=== PATIENT | female | born 1975 | race Caucasian/White ===

== ENCOUNTER 2021-04-10 14:32 | Emergency (ER) | payer OTHER ==
[~2021-04-10] VITALS: Ht 160 cm; Wt 75.6 kg
[2021-04-10 14:36] VITALS: BP 123/52
[2021-04-10 15:02] LABS: BILIRUBIN,URINE NEGATIVE (NEG); CLARITY,URINE CLOUDY; COLOR,URINE YELLOW; NITRITE,URINE NEGATIVE (NEG); PH,URINE 5.5 (<5.0-8.0); PROTEIN,URINE NEGATIVE (NEG-TRACE); UROBILINOGEN,URINE 0.2 mg/dL (0.2 mg/dL)
[2021-04-10 15:09] LABS: BACTERIA,URINE FEW /HPF (0-FEW)
--- NOTE | 2021-04-10 15:10 | RAD ---
EXAM: Abdomen and pelvis CT without intravenous contrast. HISTORY: Flank pain. TECHNIQUE: Computed tomographic images of the abdomen and pelvis were obtained without intravenous co ntrast. Multiplanar reformatting was performed. *One or more of the following individualized dose reduction techniques were utilized for this examina tion: 1. Automated exposure control. 2. Adjustment of the mA and/or kV according to patient size. 3. Use of iterative reconstruction technique. COMPARISON: None. FINDINGS: Evaluation of the lower thorax demonstrates no infiltrate, pleural effusion or pneumothorax . There is a 3 mL nodule along the right minor fissure due to a fissural lymph node. There is posteri or dependent atelectasis. No hepatic lesion is seen. The gallbladder, pancreas, spleen and adrenal gl ands are unremarkable. The stomach is unremarkable. There is mild right hydronephrosis secondary to a 2 mm obstructing stone within the distal right uret er at or immediately proximal to the ureterovesical junction. The bladder is nearly empty. No additio nal renal stone or ureteral stone is seen. There is no appendicitis. There is no bowel obstruction. The aorta is normal in caliber. There is no lymphadenopathy. The uterus and ovaries are unremarkable. There is no suspicious osseous lesion. IMPRESSION: Mild right hydronephrosis secondary to a 2 mm stone within the distal ureter at or immedi ately proximal to the ureterovesical junction. Electronically signed by: Dahlia Tiwari MD (04/10/2021 3:08 PM) [facility]
[2021-04-10] MEDS ORDERED: TAMSULOSIN 0.4 MG CAP.ER.24H. PO ONE (15:45)
[2021-04-10] MEDS ORDERED: HYDROcodone/APAP 5/325MG 1 TAB TABLET PO ONE (15:45)
[2021-04-10] MEDS ORDERED: ONDANSETRON ODT 4 MG TAB.RAPDIS. PO ONE (15:45)
[2021-04-10] MEDS ORDERED: ONDA4TAB12 PO (16:58)
[2021-04-10] MEDS ORDERED: HYDR-2759 PO (16:58)
[2021-04-10] MEDS ORDERED: TAMS0.4C97 PO (16:58)
[2021-04-10] MEDS ORDERED: NAPR-514 PO (16:58)
--- NOTE | 2021-04-10 16:59 | PHYS DOC ---
Past Medical History Past Medical History: Kidney Stone Past Surgical History: Tonsillectomy Smoking Status: Never Smoker Alcohol Use: None General Adult EDM: Chief Complaint: FLANK PAIN HPI: HPI: Patient is a 46 year old female with history of kidney stones who presents to the ED today complaining of 6 out of 10 right flank pain radiating to the right groin, symptoms began last night but got worse this morning. Patient states she has tried taking ibuprofen with no relief. Denies any nausea vomiting. Denies any fever. Denies anything specifically relieving the pain. Describes the pain as shooting and sharp. Review of Systems: Review of Systems: Constitutional: Denies fever or chills. [] Eyes: Denies change in visual acuity. [] HENT: Denies nasal congestion or sore throat. [] Respiratory: Denies cough or shortness of breath. [] Cardiovascular: Denies chest pain or edema. [] GI: Reports pain radiating to the right groin, and right abdomen, denies nausea, vomiting, bloody stools or diarrhea. [] : Reports right flank pain. Denies dysuria. [] Musculoskeletal: Denies back pain or joint pain. [] Integument: Denies rash. [] Neurologic: Denies headache, focal weakness or sensory changes. [] Psychiatric: Denies depression or anxiety. [] Heart Score: C/O Chest Pain: N/A Risk Factors: Risk Factors: DM, Current or recent (<one month) smoker, HTN, HLP, family history of CAD, obesity. Risk Scores: Score 0 - 3: 2.5% MACE over next 6 weeks - Discharge Home Score 4 - 6: 20.3% MACE over next 6 weeks - Admit for Clinical Observation Score 7 - 10: 72.7% MACE over next 6 weeks - Early Invasive Strategies Current Medications: Current Medications Medications (Trade) Dose Ordered Sig/Sylvia Start Time Stop Time Status Last Admin Dose Admin Acetaminophen/ Hydrocodone Bitart (Lortab 5/325) 2 tab 1X ONCE 04/10/21 15:45 04/10/21 15:46 DC 04/10/21 15:43 2 TAB Ketorolac Tromethamine (Toradol Im) 60 mg 1X ONCE 04/10/21 17:00 04/10/21 17:01 Ondansetron HCl (Zofran Odt) 4 mg 1X ONCE 04/10/21 15:45 04/10/21 15:46 DC 04/10/21 15:43 4 MG Tamsulosin HCl (Flomax) 0.4 mg 1X ONCE 04/10/21 15:45 04/10/21 15:46 DC 04/10/21 15:43 0.4 MG Allergies: Allergies: Allergies Coded Allergies Type Severity Reaction Last Updated Verified prochlorperazine Allergy Intermediate 04/10/21 Yes Physical Exam: PE: Constitutional: Well developed, well nourished, no acute distress, non-toxic appearance. [] HENT: Normocephalic, atraumatic, bilateral external ears normal, oropharynx moist, no oral exudates, nose normal. [] Eyes: PERRLA, EOMI, conjunctiva normal, no discharge. [] Neck: Normal range of motion, no tenderness, supple, no stridor. [] Cardiovascular:Heart rate regular rhythm, no murmur [] Lungs & Thorax: Bilateral breath sounds clear to auscultation [] Abdomen: Bowel sounds normal, soft, no tenderness, no masses, no pulsatile masses. [] Skin: Warm, dry, no erythema, no rash. [] Back: No tenderness, no CVA tenderness. [] Extremities: No tenderness, no cyanosis, no clubbing, ROM intact, no edema. [] Neurologic: Alert and oriented X 3, normal motor function, normal sensory function, no focal deficits noted. [] Psychologic: Affect normal, judgement normal, mood normal. [] Current Patient Data: Labs: Laboratory Tests Test 04/10/21 14:46 Urine Collection Type Unknown Urine Color Yellow Urine Clarity Cloudy Urine pH 5.5 (<5.0-8.0) Urine Specific [place] >=1.030 (1.000-1.030) Urine Protein Negative mg/dL (NEG-TRACE) Urine Glucose (UA) Negative mg/dL (NEG) Urine Ketones (Stick) Negative mg/dL (NEG) Urine Blood Small (NEG) Urine Nitrite Negative (NEG) Urine Bilirubin Negative (NEG) Urine Urobilinogen Dipstick 0.2 mg/dL (0.2 mg/dL) Urine Leukocyte Esterase Negative (NEG) Urine RBC 6-10 /HPF (0-2) Urine WBC 1-4 /HPF (0-4) Urine Squamous Epithelial Cells Mod /LPF Urine Bacteria Few /HPF (0-FEW) Urine Mucus Mod /LPF Vital Signs: Vital Signs Date Time Temp Pulse Resp B/P (MAP) Pulse Ox O2 Delivery O2 Flow Rate FiO2 04/10/21 15:43 16 98 Room Air 04/10/21 14:36 123/52 (75) EKG: EKG: [] Radiology/Procedures: Radiology/Procedures: []PROCEDURE: CT ABDOMEN PELVIS WO CONTRAST EXAM: Abdomen and pelvis CT without intravenous contrast. HISTORY: Flank pain. TECHNIQUE: Computed tomographic images of the abdomen and pelvis were obtained without intravenous contrast. Multiplanar reformatting was performed. *One or more of the following individualized dose reduction techniques were utilized for this examination: 1. Automated exposure control. 2. Adjustment of the mA and/or kV according to patient size. 3. Use of iterative reconstruction technique. COMPARISON: None. FINDINGS: Evaluation of the lower thorax demonstrates no infiltrate, pleural effusion or pneumothorax. There is a 3 mL nodule along the right minor fissure due to a fissural lymph node. There is posterior dependent atelectasis. No hepatic lesion is seen. The gallbladder, pancreas, spleen and adrenal glands are unremarkable. The stomach is unremarkable. There is mild right hydronephrosis secondary to a 2 mm obstructing stone within the distal right ureter at or immediately proximal to the ureterovesical junction. The bladder is nearly empty. No additional renal stone or ureteral stone is seen. There is no appendicitis. There is no bowel obstruction. The aorta is normal in caliber. There is no lymphadenopathy. The uterus and ovaries are unremarkable. There is no suspicious osseous lesion. IMPRESSION: Mild right hydronephrosis secondary to a 2 mm stone within the distal ureter at or immediately proximal to the ureterovesical junction. Electronically signed by: Dahlia Tiwari MD (04/10/2021 3:08 PM) [facility] DICTATED and SIGNED BY: DAHLIA TIWARI MD DATE: 04/10/21 [id number] 0 Course & Med Decision Making: Course & Med Decision Making Pertinent Labs and Imaging studies reviewed. (See chart for details) This a 46-year-old female patient presented to the ED today with complaints of right pain, symptoms began yesterday. History of kidney stones. Urine analysis negative for infection, noted for small amount of blood. CT of the abdomen and pelvic was noted for mild right hydronephrosis secondary to a 2 mm stone within the distal ureter at or immediately proximal to the ureterovesical junction. Patient's pain is well controlled, discharged home, follow-up with urology. Clara Disclaimer: Clara Disclaimer: This electronic medical record was generated, in whole or in part, using a voice recognition dictation system. Departure Departure Impression: Primary Impression: Kidney stone on right side Additional Impression: Hydronephrosis, right Disposition: HOME / SELF CARE / HOMELESS Condition: STABLE Referrals: ANDERSON PERRY (PCP) Follow-up with the urologist at [facility] and your primary care doctor Patient Instructions: Kidney Stones, [id number] Additional Instructions: You have a 2 mm stone within the right distal right ureter with some hydronephrosis. We encourage you to push fluids, take the prescribed medications as ordered. Follow-up with your primary care doctor and urologist in the course of this week. Scripts Naproxen (NAPROXEN) 500 Mg Tablet 1 TAB PO BID for pain, #20 TAB 0 Refills Prov: STEPHEN DE SOUZA APRN 04/10/21 Ondansetron (ONDANSETRON ODT) 4 Mg Tab.rapdis 1 TAB PO PRN Q6-8HRS, #16 TAB Prov: STEPHEN DE SOUZA APRN 04/10/21 Hydrocodone/Acetaminophen (Hydrocodone-Acetamin 5-325 mg) 1 Each Tablet 1 EACH PO Q6HRS PRN for PAIN, #20 TAB Prov: STEPHEN DE SOUZA APRN 04/10/21 Tamsulosin Hcl (FLOMAX) 0.4 Mg Cap.er.24h 1 CAP PO DAILY, #7 CAP 0 Refills Prov: STEPHEN DE SOUZA EVALUATION MANAGER 04/10/21 STEPHEN DE SOUZA APRN Apr 10, 2021 16:59
[2021-04-10] MEDS ORDERED: KETOROLAC 60 MG/2 ML VIAL. IM ONE (17:00)
== END 2021-04-10 17:15 | disposition home or self-care (01) ==
LOC: ER 14:32
DX: N13.2 Hydronephrosis with renal and ureteral calculous obstruction (principal); Z88.8 Allergy status to other drugs, medicaments and biological substances
CPT/HCPCS: 74176; 81001; 81025; 96372; 99284; J1885